=== PATIENT | male | born 1980 | race Caucasian/White ===

== ENCOUNTER 2019-04-22 22:24 | Emergency (ER) | payer OTHER ==
[~2019-04-22] VITALS: Ht 167.6 cm; Wt 79.4 kg
[~2019-04-22 22:24] MED LIST: CIPRO500 MG PO; Cipro PO; DOLOGESIC CAPLE1 TAB PO; OXYC1TAB9 PO
== END 2019-04-23 06:07 | disposition home or self-care (01) ==
LOC: ER 22:24
DX: G43.109 Migraine with aura, not intractable, without status migrainosus (principal)

== ENCOUNTER → 2020-11-02 08:00 | Outpatient (CLI) | payer OTHER ==
[~2020-11-02 08:00] MED LIST changes: +COLACE100 MG PO; +DESCOVY 200-251 EACH; +NEURONTIN600 M1 PO; +PERCOCET 5-3251 EACH PO
== END | disposition home or self-care (01) ==
LOC: ADM 08:00 → LAB 08:00 → ADM 08:15 → EDSTATUS 11-09 08:15 → CIR.AMB 11-09 08:15 → CIR LITO 11-09 08:15 → CIR.AMB 11-09 09:15
PROVIDERS: ATTEND Surgery
DX: U07.1 COVID-19 (principal); K40.91 Unilateral inguinal hernia, without obstruction or gangrene, recurrent

== ENCOUNTER 2021-01-04 06:26 | Day surgery (SDC) | payer OTHER ==
[~2021-01-04 06:26] MED LIST changes: -COLACE100 MG PO; -DESCOVY 200-251 EACH; -NEURONTIN600 M1 PO; -PERCOCET 5-3251 EACH PO
[2021-01-04] MEDS ORDERED: PERCOCET 5-3251 EACH PO (13:03)
[2021-01-04] MEDS ORDERED: NEURONTIN600 M1 PO (13:03)
[2021-01-04] MEDS ORDERED: COLACE100 MG PO (13:03)
== END 2021-01-04 17:40 | disposition home or self-care (01) ==
LOC: CIR.AMB 06:26
PROVIDERS: ATTEND Surgery
DX: K40.91 Unilateral inguinal hernia, without obstruction or gangrene, recurrent (principal); Z20.822 Contact with and (suspected) exposure to COVID-19

== ENCOUNTER 2021-01-07 03:44 | Inpatient (IN) | payer OTHER ==
[~2021-01-07] VITALS: Ht 167.6 cm; Wt 72.6 kg
[~2021-01-07 03:44] MED LIST changes: +COLACE100 MG PO; +NEURONTIN600 M1 PO; +PERCOCET 5-3251 EACH PO
[2021-01-09] MEDS ORDERED: DESCOVY 200-251 EACH (10:37)
== END 2021-01-10 12:07 | disposition home or self-care (01) | DRG 352 ==
LOC: ER 03:44 → SURH 11:18
PROVIDERS: ADMIT Surgery; ATTEND Surgery
PROC: 0YQ64ZZ Repair Left Inguinal Region, Percutaneous Endoscopic Approach (ICD-10-PCS; principal; 2021-01-08 08:00)
DX: K40.31 Unilateral inguinal hernia, with obstruction, without gangrene, recurrent (principal); E86.0 Dehydration; Z20.822 Contact with and (suspected) exposure to COVID-19

== ENCOUNTER 2021-03-31 12:59 | Inpatient (IN) | payer OTHER ==
[~2021-03-31] VITALS: Ht 167.6 cm; Wt 73.9 kg
[~2021-03-31 12:59] MED LIST changes: +DESCOVY 200-251 EACH
[2021-04-02] MEDS ORDERED: INTESTINEX680 M1 PO (11:44)
[2021-04-02] MEDS ORDERED: PERCOCET 5-3251 EACH PO (11:44)
== END 2021-04-02 13:36 | disposition home or self-care (01) | DRG 346 ==
LOC: ER 12:59 → SURG 04-01 07:53
PROVIDERS: ADMIT Surgery; ATTEND Surgery
PROC: 0D9P0ZZ Drainage of Rectum, Open Approach (ICD-10-PCS; principal; 2021-04-02)
DX: K61.0 Anal abscess (principal); K62.89 Other specified diseases of anus and rectum; K64.8 Other hemorrhoids; Z20.822 Contact with and (suspected) exposure to COVID-19